=== PATIENT | female | born 2000 | race Caucasian/White ===

== ENCOUNTER 2024-06-25 09:40 | Emergency (ER) | payer MEDICAID, MEDICARE ==
[~2024-06-25] VITALS: Ht 170.2 cm; Wt 57.2 kg
[2024-06-25] MEDS: DEXAMETHASONE SOD PHOSPHATE 4 MG INJ IM ONE (11:57)
[2024-06-25] MEDS ORDERED: DEXAMETHASONE SOD PHOSPHATE 4 MG INJ ONE (11:57)
== END 2024-06-25 12:04 | disposition home or self-care (01) ==
LOC: ER 09:40
DX: J02.9 Acute pharyngitis, unspecified (principal); Z88.0 Allergy status to penicillin
CPT/HCPCS: 99283; 87081; 86403; 87070; 96372; J1100; A4606; A4663